=== PATIENT | male | born 1965 | race Two or more races ===

== ENCOUNTER 2018-02-23 22:39 | Emergency (ER) | payer MEDICAID ==
[2018-02-23 22:42] VITALS: BP 134/86
[2018-02-23] MEDS ORDERED: LIDOCAINE-MPF 1%, 5ML INFIL ONE (23:00)
[2018-02-23] MEDS ORDERED: LIDOCAINE-MPF 1%, 5ML ONE (23:04)
[2018-02-23] MEDS ORDERED: BACITRACIN ZINC OINT 500U/GM, 0.9 GM ONE (23:07)
== END 2018-02-23 23:36 | disposition home or self-care (01) ==
LOC: ED 22:59
DX: S51.012A Laceration without foreign body of left elbow, initial encounter (principal); F17.210 Nicotine dependence, cigarettes, uncomplicated; W18.39XA Other fall on same level, initial encounter; Y93.89 Activity, other specified; Y92.009 Unspecified place in unspecified non-institutional (private) residence as the place of occurrence of the external cause; Y99.8 Other external cause status
CPT/HCPCS: 12001; 99283

== ENCOUNTER 2018-03-08 18:29 | Emergency (ER) | payer MEDICAID ==
[~2018-03-08] VITALS: Ht 167.6 cm; Wt 60.2 kg
[2018-03-08 18:39] VITALS: BP 113/76
== END 2018-03-08 19:31 | disposition home or self-care (01) ==
LOC: ED 19:26
DX: Z48.02 Encounter for removal of sutures (principal)
CPT/HCPCS: 99281